=== PATIENT | female | born 1950 | race Caucasian/White ===

== ENCOUNTER → 2024-09-20 | Outpatient (CLI) | payer MEDICARE, BC, SELFPAY ==
[2024-09-20 11:27] LABS: Basophils % (Auto) 1 % (0-2.5); Eosinophils % (Auto) 1 % (0-10); Hematocrit 40.3 % (36.0-46.0); Hemoglobin 14.1 g/dL (12.0-16.0); Immature Granulocytes % (Auto) 0 % (0-0); Immature Granulocytes Auto 0.01 Thou/mm3 (0.00-0.00); Lymphocytes % (Auto) 31 % (10-50); Mean Corpuscular Hemoglobin 30.9 pg (25.0-35.0); Mean Corpuscular Volume 88 fL (80-100); Monocytes # (Auto) 0.5 Thou/mm3 (0.0-0.8); Monocytes % (Auto) 8 % (0-12); Neutrophils # (Auto) 3.7 Thou/mm3 (1.8-7.7); Neutrophils % (Auto) 59 % (37-80); Nucleated Red Blood Cell % 0 /100 WBC (0); Platelet Count 272 Thou/mm3 (140-440); Red Blood Count 4.56 Miln/mm3 (4.00-5.20); White Blood Count 6.2 Thou/mm3 (3.6-11.0)
--- NOTE | 2024-09-20 11:28 | EKG_ITS ---
[facility] (Formerly [facility])[3] Test Date: 2024-09-20 Pat Name: ZACH PERSAUD Department: Room: - Gender: Female [employer]: KATHRYN : 1950 Requested By: Yo Pires Order Number: [id number] Reading MD: Yo Pires Measurements Intervals Burton Rate: 58 P: 58 ID: [id number] QRS: -44 QRSD: 90 T: 42 QT: 402 QTc: 398 Interpretive Statements SINUS BRADYCARDIA MARKED LEFT AXIS DEVIATION [QRS AXIS < -30] No previous ECG available for comparison [id number]
[2024-09-20 11:56] LABS: Albumin, Serum 4.5 gm/dL (3.4-4.8); Anion Gap 7 (7-16); BUN/Creatinine Ratio 14 Ratio (12-20); Blood Urea Nitrogen 15 mg/dL (9-23); Calcium 9.5 mg/dL (8.3-10.6); Calcium (Corrected) 9.5 mg/dL (8.5-10.1); Carbon Dioxide 27.5 mMol/L (20.0-31.0); Chloride 105 mMol/L (98-107); Creatinine (Component) 1.1 mg/dL (0.6-1.3); Glucose 119 mg/dL (74-106); Osmolality,Calculated 279 (275-295); Potassium 4.2 mMol/L (3.4-5.1); Sodium 139 mMol/L (136-145); eGFR 53 See Note
== END | disposition home or self-care (01) ==
PROVIDERS: PCP Family Medicine; Referring Provider Family Medicine; Visit Provider Family Medicine
DX: I10 Essential (primary) hypertension (principal); D50.0 Iron deficiency anemia secondary to blood loss (chronic); Z13.1 Encounter for screening for diabetes mellitus
CPT/HCPCS: 36415; 80069; 85025; 93005